=== PATIENT | female | born 1970 | race Caucasian/White ===

== ENCOUNTER → 2016-06-18 | Outpatient (CLI) | payer BC ==
[~2016-06-18] VITALS: Ht 166.4 cm; Wt 73.0 kg
[~2016-06-18] MED LIST: CYMBALTA60 MG PO; DAILY VALUE1 EACH PO; DILAUDID2 MG PO; LORATADINE10 M2 PO; SINGULAIR10 MG PO; VALIUM5 MG PO
[2016-06-18 07:29] VITALS: BP 140/67
== END | disposition home or self-care (01) ==
LOC: IVINF 07:00
PROVIDERS: Internal Medicine Endocrinology, Diabetes & Metabolism
DX: E27.40 Unspecified adrenocortical insufficiency (principal)
CPT/HCPCS: 80400; 82024 90; 82533 91; 96374; J0834

== ENCOUNTER 2017-06-16 08:42 | Emergency (ER) | payer BC ==
[~2017-06-16] VITALS: Ht 165.1 cm; Wt 73.4 kg
[2017-06-16 10:29] LABS: HEMATOCRIT 40.4 % (36.0-46.0); HEMOGLOBIN 13.9 G/DL (11.9-15.5); MCHC 34.4 G/DL (30.0-36.0); MCV 90.2 FL (83-99); PLATELET COUNT 223 K/uL (156-360); RBC DIS.WIDTH-CV 11.6 % (11.8-14.6); RBC DIS.WIDTH-SD 38.4 % (39-53); RED BLOOD COUNT 4.48 M/uL (3.80-5.20); WHITE BLOOD COUNT 5.3 K/uL (4.1-10.2)
[2017-06-16] MEDS ORDERED: ZOFRAN ODT8 MG PO (10:31)
[2017-06-16 10:59] LABS: ALBUMIN 4.5 g/dL (3.2-4.8)
[2017-06-16 11:00] LABS: CHLORIDE 109 mEq/L (99-109); POTASSIUM 3.8 mEq/L (3.7-5.4); SODIUM 140 mEq/L (136-147)
[2017-06-16 11:02] LABS: GLUCOSE 94 mg/dL (70-99); TOTAL PROTEIN 7.3 g/dL (6.4-8.3)
[2017-06-16 11:04] LABS: TOTAL BILIRUBIN 0.5 mg/dL (0.0-1.0)
[2017-06-16 11:05] LABS: ALKALINE PHOSPHATASE 94 IU/L (3-129)
[2017-06-16 11:06] LABS: CREATININE 0.7 mg/dL (0.6-1.3); GFR ESTIMATE (CALCULATED) > 59 mL/min/
[2017-06-16 11:07] LABS: AST (GOT) 18 IU/L (2-34); UREA NITROGEN (BUN) 9 mg/dL (9-23)
[2017-06-16 11:09] LABS: ALT (GPT) 14 IU/L (3-49); LIPASE 20 U/L (1.0-51.0)
[2017-06-16 11:15] LABS: QUANTITATIVE HCG < 4.0 MIU/ML
[2017-06-16 12:06] LABS: APPEARANCE CLEAR ((CLEAR)); BILIRUBIN NEGATIVE; BLOOD NEGATIVE; COLOR YELLOW ((YELLOW)); GLUCOSE (STRIP) NEGATIVE; KETONES 5; LEUKOCYTES NEGATIVE; NITRITE NEGATIVE; PROTEIN (STRIP) NEGATIVE; SPECIFIC GRAVITY 1.033 (1.000-1.030); UCUL ADDED? NO; UROBILINOGEN 0.2 MG/DL (0.2-1.0)
[2017-06-16 13:32] VITALS: BP 119/90
== END 2017-06-16 13:34 | disposition home or self-care (01) ==
LOC: EME 08:42
PROVIDERS: Emergency Medicine Emergency Medical Services
DX: R11.2 Nausea with vomiting, unspecified (principal); G43.909 Migraine, unspecified, not intractable, without status migrainosus; R10.31 Right lower quadrant pain; E86.0 Dehydration; Z90.710 Acquired absence of both cervix and uterus; Z90.49 Acquired absence of other specified parts of digestive tract; Z88.2 Allergy status to sulfonamides; Z87.891 Personal history of nicotine dependence
CPT/HCPCS: 74177; 80053; 81003; 83690; 84702; 85027; J0780; J7040

== ENCOUNTER → 2017-08-05 | Outpatient (CLI) | payer BC ==
[~2017-08-05] MED LIST changes: +ZOFRAN ODT8 MG PO
== END | disposition home or self-care (01) ==
LOC: RES 08:54
DX: J45.41 Moderate persistent asthma with (acute) exacerbation (principal)
CPT/HCPCS: 94060; 94726; 94729